=== PATIENT | female | born 1940 | race Caucasian/White ===

== ENCOUNTER → 2021-03-25 15:44 | Emergency (ER) | payer MEDICARE, SELFPAY ==
--- NOTE | 2021-03-25 15:59 | PC.NURSE ---
Family requested RN to assist with getting patient out of car. Once patient was half out of car, patient states that she does not want to go into the ED at this time, patient now refusing to help family and RN get out of car to be seen.
== END | disposition left against medical advice (07) ==
PROVIDERS: PCP Family Medicine
DX: R53.1 Weakness (principal)
CPT/HCPCS: 99199

== ENCOUNTER 2021-03-27 17:14 | Inpatient (IN) | payer MEDICARE, MEDICAID, SELFPAY ==
--- NOTE | ~2021-03-27 | XR_ITS ---
EXAMINATION: XR chest 2V DATE: 03/27/2021 19:17 INDICATION: Shortness of breath and chest congestion TECHNIQUE: frontal and lateral views of the chest were obtained. COMPARISON: Chest radiograph dated 01/30/2017 FINDINGS: Mild elevation of the left hemidiaphragm. Opacities at the left lower lung zone which could represent atelectasis and/or pneumonia. Right lung remains clear. No pulmonary edema, pleural effusion or pneu mothorax. The cardiomediastinal silhouette is within normal limits for AP technique. Median sternotom y wires and mediastinal surgical clips are seen, likely from prior coronary artery bypass grafting. T here are also retained epicardial pacemaker leads. Moderate thoracic spondylosis. Right rotator cuff arthropathy. IMPRESSION: 1. Opacities in the left lower lung zone which could represent atelectasis and/or pneumonia. Reviewed, dictated and finalized at location A. IMPRESSION: 1. Opacities in the left lower lung zone which could represent atelectasis and/ or pneumonia.
--- NOTE | ~2021-03-27 | US_ITS ---
EXAMINATION: US venous doppler LE EXAM DATE: 03/28/2021 11:23 INDICATION: Bilateral leg edema. TECHNIQUE: Multiple grayscale, color flow and Doppler images of the lower extremity deep venous syste ms bilaterally were obtained and reviewed. Comparison is made to prior examination from 01/31/2017. FINDINGS: RIGHT SIDE Common femoral: -------- Normal. Profunda femoral: ------- Normal. Femoral: Normal. Popliteal: Normal. Posterior tibial: ---------Not visualized. Peroneal: Not visualized. Gastrocnemius: Normal. Soleus: Not visualized. Greater saphenous: ----- Normal. Lesser saphenous: ------ Not visualized. LEFT SIDE: Patient declined further imaging, left leg not evaluated. IMPRESSION: Incomplete exam, patient declined imaging beyond right thigh. Reviewed, dictated and finalized at location A.
[2021-03-27 17:13] VITALS: BP 115/70; PULSE 59; RESP 19; TEMP 36.4; O2SAT 95
--- NOTE | 2021-03-27 18:54 | ED.URI ---
HPI - URI/Sore Throat General Chief Complaint: Upper Respiratory Infection Stated Complaint: COUGH/CONGESTION Time Seen by Provider: 03/27/21 18:50 History of Present Illness HPI Narrative: 80 yo female presents from home for suspected pneumonia. Her daughter reports that for at least the past 4-5 dyas she has had a wet cough. She gets short of breath with minimal exertional. She has also had generalized weakness and is not able to provide much assistance with normal activities. No known fever. Her daughter does reports mild ankle swelling. History limited due to extremely poor historian. Daughter provides the majority of the history. Related Data Home Medications Medication Instructions Recorded Confirmed alprazolam 0.25 mg PO 03/27/21 aspirin [Adult Low Dose Aspirin] 81 mg PO DAILY 03/27/21 03/27/21 losartan 25 mg PO 03/27/21 metoprolol succinate 25 mg PO 03/27/21 paroxetine HCl 40 mg PO 03/27/21 simvastatin 20 mg PO 03/27/21 warfarin 1 mg PO 03/27/21 warfarin 2 mg PO 03/27/21 Allergies Allergy/AdvReac Type Severity Reaction Status Date / Time No Known Allergies Allergy Unverified 03/27/21 17:20 Review of Systems Review of Systems: ROS unobtainable: Yes unobtainable due to mental status PMFSH Past Medical History Medical History (Updated 03/27/21 @ 20:22 by Milton Alvarado MD) HTN (hypertension) Surgical History Surgical History (Updated 03/27/21 @ 19:19 by Milton Alvarado MD) Hx of CABG Social History Social History Gender identity (if verbalized by the patient): Female Exam Const: General: no acute distress and alert Nutritional Appearance: well nourished HENMT: Head: normal to inspection Eyes: Pupils: Equal, round and reactive pupils present Neck: Neck: normal visual inspection Chest: Chest palpation & inspection: normal inspection of the chest Resp: Auscultation: crackles bilateral at the base Cardio: Rate: bradycardic Rhythm: regular rhythm GI: Inspection: non-distended GI Palp: Yes Soft to palpation and No Tenderness to palpation present (GI) Skin: General skin exam: normal color Rashes: no rashes Wounds: no wounds Neuro: General: moves all extremities, no focal motor deficits and CN's II-XI intact bilaterally Extrem: General: edema (trace bilateral ankle edema) Course Vital Signs Vital signs: Vital Signs Temperature 36.4 C 03/27/21 17:13 Pulse Rate 59 L 03/27/21 17:13 Respiratory Rate 19 03/27/21 17:13 Blood Pressure 115/70 03/27/21 17:13 Pulse Oximetry 95 03/27/21 17:13 Temperature 36.4 C 03/27/21 17:13 Pulse Rate 59 L 03/27/21 17:13 Respiratory Rate 19 03/27/21 17:13 Blood Pressure 115/70 03/27/21 17:13 Pulse Oximetry 95 03/27/21 17:13 MDM - URI/Sore Throat MDM Narrative Medical decision making narrative: Work-up largely unremarkable. Labs at/near baseline. Possible small infiltrate on chest x-ray. Refusing to provide urine for UA. I will admit for observation given progressive weakness without specific cause identified. Differential Diagnosis Differential diagnosis: Likely upper respiratory infection, viral infection and other (COVID-19, Pneumonia, CHF, UTI) Medical Records Attestation: I reviewed the patient's medical records. Lab Data Attestation: I reviewed the patient's lab results. Result diagrams: 03/27/21 19:31 03/27/21 19:31 Labs: Lab Results 03/27/21 03/27/21 03/27/21 Range/Units 19:31 19:31 19:31 WBC 8.3 (4.5-10.0) K/mm3 RBC 4.33 (4.2-5.4) M/mm3 Hgb 13.7 (12.0-15.0) g/dL Hct 42.1 (37.0-47.0) % MCV 97.2 (80-100) fl MCH 31.6 (26-34) pg MCHC 32.5 (32-36) g/dl RDW 13.3 (11.5-14.5) % Plt Count 293 (150-375) k/mm3 MPV 10.3 (7.4-10.4) fl Immature Gran % (Auto) 0.2 (0-0.5) % Neut % (Auto) 39.7 L (45.5-73.1) % Lymph % (Auto) 46.3 H (18.3-44.2) % [place] % (Auto) 9.0 H (2.6-8.5) % Eos % (Aut
--- NOTE | 2021-03-27 19:00 | ECG_ITS ---
Measurements Intervals [place] Rate: 51 P: 51 [place]: 187 QRS: -28 QRSD: 108 T: 112 QT: 450 QTc: 415 Interpretive Statements SINUS BRADYCARDIA VOLTAGE CRITERIA FOR LVH BORDERLINE R WAVE PROGRESSION, ANTERIOR LEADS CANNOT RULE OUT SEPTAL INFARCT, AGE INDETERMINATE BORDERLINE ST-T WAVE ABNORMALITY- ANTEROLAT/HIGH LAT LEADS ABNORMAL ECG Electronically Signed On 03-27-2021 20:15:10 CDT by Tim Vidal D.O.
--- NOTE | 2021-03-27 19:16 | PC.NURSE ---
Assumed care of Pt. Report from Tiff MCGOVERN.
--- NOTE | 2021-03-27 19:17 | PC.NURSE ---
Pt at CT.
[2021-03-27 19:36] LABS: Basophils Absolute Auto 0.1 K/mm3 (0.0-0.1); Eosinophils Absolute Auto 0.3 K/mm3 (0-0.3); Eosinophils Percent Auto 3.8 % (0-4.4); Hematocrit 42.1 % (37.0-47.0); Hemoglobin 13.7 g/dL (12.0-15.0); Immature Granulocyte Absolute 0.02 K/mm3 (0.00-0.031); Immature Granulocyte Percent A 0.2 % (0-0.5); Lymphocytes Absolute Auto 3.86 K/mm3 (0.9-3.2); Lymphocytes Percent Auto 46.3 % (18.3-44.2); Mean Corpuscular HGB Conc 32.5 g/dl (32-36); Mean Corpuscular Hemoglobin 31.6 pg (26-34); Mean Corpuscular Volume 97.2 fl (80-100); Mean Platelet Volume 10.3 fl (7.4-10.4); Monocytes Absolute Auto 0.8 K/mm3 (0.1-0.6); Neutrophils Absolute Auto 3.3 K/mm3 (1.3-6.7); Neutrophils Percent Auto 39.7 % (45.5-73.1); Platelet Count Result 293 k/mm3 (150-375); Red Blood Count 4.33 M/mm3 (4.2-5.4); Red Cell Distribution Width 13.3 % (11.5-14.5); White Blood Count 8.3 K/mm3 (4.5-10.0)
[2021-03-27 19:48] LABS: Alanine Aminotransferase 10 U/L (4-35); Albumin Level 3.7 g/dL (3.5-5.1); Alkaline Phosphatase 75 U/L (38-126); Anion Gap 3 mmol/L (8-16); Aspartate Amino Transferase 23 U/L (14-36); Bilirubin,Total 0.3 mg/dL (0.2-1.3); Blood Urea Nitrogen 18 mg/dL (7-17); Calcium 9.5 mg/dL (8.4-10.2); Carbon Dioxide 31 mmol/L (22-30); Chloride 106 mmol/L (98-107); Estimated CRCL calculation 22 ml/min; Estimated Glomerular Filt Rate 33; Glucose 125 mg/dL (65-105); INR 2.2; Prothrombin Time 24.6 Seconds (11.1-14.7); Sodium 140 mmol/L (137-145)
[2021-03-27 19:49] LABS: Partial Thromboplastin Time 38.2 SECONDS (22.3-36.8)
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
[2021-03-27 19:58] LABS: NT Pro B Type Natriuretic Pept 826 pg/mL (5-100); Troponin I < 0.012 ng/mL (0.000-0.034)
[2021-03-27 20:06] VITALS: BP 98/71; PULSE 51; RESP 12; TEMP 36.4; O2SAT 90
--- NOTE | 2021-03-27 20:21 | PC.NURSE ---
ERP ok with not obtaining urine at this time due to pt refusal.
[2021-03-27] MEDS: SODIUM CHLORIDE 0.9% IV 500 ML 999 ML IV CONT (20:29)
[2021-03-27 22:03] VITALS: BP 104/43; PULSE 64; RESP 18; TEMP 36.7; O2SAT 92
[2021-03-28] VITALS (10 sets, daily range): BP systolic 118–145; BP diastolic 50–61; PULSE 52–91; RESP 16–20; TEMP 36–36.3; O2SAT 93–96
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
--- NOTE | 2021-03-28 06:29 | PC.NURSE ---
Patient arrived to floor at 2205. Pt is severely [place] and displayed mild, combative behavior towards FILM INSPECTOR. Difficult to ascertain needed information from patient. Daughter was told that she could escort her mom to floor from ER to help answer questions but she did not accompany. LVMM to daughter (Arely) and left call back info to help nursing staff complete admission assessment.//cr 0600: No return call from daughter. Will endorse to day shift.//cr
[2021-03-28 06:30] LABS: Basophils Absolute Auto 0.1 K/mm3 (0.0-0.1); Basophils Percent Auto 1.1 % (0.2-1.2); Eosinophils Absolute Auto 0.3 K/mm3 (0-0.3); Eosinophils Percent Auto 4.6 % (0-4.4); Hemoglobin 12.7 g/dL (12.0-15.0); Immature Granulocyte Absolute 0.02 K/mm3 (0.00-0.031); Immature Granulocyte Percent A 0.3 % (0-0.5); Lymphocytes Absolute Auto 3.16 K/mm3 (0.9-3.2); Lymphocytes Percent Auto 44.4 % (18.3-44.2); Mean Corpuscular HGB Conc 32.6 g/dl (32-36); Mean Corpuscular Hemoglobin 31.5 pg (26-34); Mean Corpuscular Volume 96.8 fl (80-100); Mean Platelet Volume 10.4 fl (7.4-10.4); Monocytes Absolute Auto 0.5 K/mm3 (0.1-0.6); Monocytes Percent Auto 6.9 % (2.6-8.5); Neutrophils Percent Auto 42.7 % (45.5-73.1); Platelet Count Result 264 k/mm3 (150-375); Red Blood Count 4.03 M/mm3 (4.2-5.4); Red Cell Distribution Width 13.1 % (11.5-14.5); White Blood Count 7.1 K/mm3 (4.5-10.0)
[2021-03-28 06:45] LABS: Alanine Aminotransferase 10 U/L (4-35); Albumin Level 3.3 g/dL (3.5-5.1); Alkaline Phosphatase 63 U/L (38-126); Anion Gap 4 mmol/L (8-16); Aspartate Amino Transferase 22 U/L (14-36); Bilirubin,Total 0.4 mg/dL (0.2-1.3); Blood Urea Nitrogen 15 mg/dL (7-17); Calcium 8.6 mg/dL (8.4-10.2); Carbon Dioxide 29 mmol/L (22-30); Chloride 106 mmol/L (98-107); Estimated CRCL calculation 23 ml/min; Estimated Glomerular Filt Rate 36; Glucose 134 mg/dL (65-105); Magnesium 1.6 mg/dL (1.6-2.3); Potassium 3.7 mmol/L (3.4-5.0); Sodium 139 mmol/L (137-145)
[2021-03-28 06:58] LABS: INR 2.1; Prothrombin Time 24.4 Seconds (11.1-14.7)
[2021-03-28] MEDS: methylPREDNISolone SOD SUCC 125 MG VIAL 60 MG IV PUSH ×2 (07:52→13:21)
[2021-03-28] MEDS: ALBUTEROL SULFATE NEB 2.5 MG/0.5 ML INH 5 MG INHALATION ×3 (08:03→19:34)
[2021-03-28] MEDS: IPRATROPIUM BR 0.02% INH SOLN 0.5 MG/2.5 ML VIAL INHALATION ×3 (08:03→19:34)
--- NOTE | 2021-03-28 11:08 | PCPTNOTE ---
Attempted PT eval. Pt having US done.
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
--- NOTE | 2021-03-28 11:32 | PCOTNOTE ---
Attempted OT evaluation, When entered room patient appeared agitated and verbalized to TRANSFER STATION OPERATOR, stating You are being a bitch! patient adamantly refused therapy at this time, despite education on benefits of participating with therapy. patient reports I am comfortable where I am at, leave me alone! . RN notified, will follow.
--- NOTE | 2021-03-28 13:29 | PCPTNOTE ---
Attempted PT eval. Pt agitated and combative, refused to participate w/ therapist. Stated Go away and mind your own business. Will try again tomorrow.
--- NOTE | 2021-03-28 13:40 | P.PNIM_ITS ---
Progress Note: A&P Assessment and Plan (1) Pneumonia: Code(s): J18.9 - Pneumonia, unspecified organism Status: Acute Assessment and Plan: She presented with shortness of breath and cough ongoing for 4 days. CXR presentation showed opacities in the left lower lung zone which could represent pneumonia. At this time, she is asymptomatic. No leukocytosis. She is afebrile. She is maintaining adequate oxygenation on room air. * Continue IV azithromycin and Rocephin at this time. * COVID-19 test pending. * Check influenza * Check Legionella and pneumococcal urinary antigens * Supportive care to include bronchodilators, expectorants, antipyretics, incentive spirometry, and PEP therapy * Unable to obtain sputum culture given nonproductive cough (2) Suspected COVID-19 virus infection: Code(s): Z20.822 - Contact with and (suspected) exposure to COVID-19 Status: Acute Assessment and Plan: She has not received COVID-19 vaccination. Unknown if prior contact with COVID- 19 positive individuals. She is on room air and remaining stable. * Continue isolation precautions * Supportive care as described above * At this time no need for COVID-19 specific therapy including dexamethasone or Remdesivir as she is not requiring supplemental O2. (3) Generalized weakness: Code(s): R53.1 - Weakness Status: Acute Assessment and Plan: She has been eating more assistance getting around at home. * Appreciate PT/OT eval * Fall precautions in place * Limit sedating medications * UA has been ordered to rule out UTI * Check TSH, B12, and folate (4) COPD (chronic obstructive pulmonary disease): Code(s): J44.9 - Chronic obstructive pulmonary disease, unspecified Status: Chronic Assessment and Plan: Does not appear to be in acute exacerbation. No wheezing. No sputum production. * Discontinue IV solumedrol which was started on 03/27. * Continue bronchodilators (5) CAD (coronary artery disease): Code(s): I25.10 - Atherosclerotic heart disease of [place] coronary artery without angina pectoris Status: Chronic Assessment and Plan: Asymptomatic. * Continue home medications including aspirin, losartan, metoprolol, and simvastatin (6) Chronic kidney disease: Code(s): N18.9 - Chronic kidney disease, unspecified Status: Chronic Assessment and Plan: Creatinine levels appear to be consistent with her baseline. Creatinine is 1.4 today. * Monitor renal function closely. Renally dose medications and avoid nephrotoxins. 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 INR is therapeutic at 2.1 today. * Resume warfarin * Monitor PT/INR daily, especially with concurrent antibiotic therapy. (8) HTN (hypertension): Code(s): I10 - Essential (primary) hypertension Status: Inactive Assessment and Plan: Blood pressure reviewed and is well controlled in the low-normal range. Last BP 125/59. * Continue losartan and metoprolol * Monitor BP trends. Subjective Date/time seen: 03/28/21 13:40 Interval history: Date of service: 03/28/2021 Marlyn Huerta is an 80-year-old female with history of CAD, CKD, COPD, hypertension, hyperlipidemia, and prior CVA who is seen in follow-up for suspected pneumonia (bacterial versus
--- NOTE | 2021-03-28 13:40 | PM.IMPN ---
Progress Note: A&P Assessment and Plan (1) Pneumonia: Code(s): J18.9 - Pneumonia, unspecified organism Status: Acute Assessment and Plan: She presented with shortness of breath and cough ongoing for 4 days. CXR presentation showed opacities in the left lower lung zone which could represent pneumonia. At this time, she is asymptomatic. No leukocytosis. She is afebrile. She is maintaining adequate oxygenation on room air. Continue IV azithromycin and Rocephin at this time. COVID-19 test pending. Check influenza Check Legionella and pneumococcal urinary antigens Supportive care to include bronchodilators, expectorants, antipyretics, incentive spirometry, and PEP therapy Unable to obtain sputum culture given nonproductive cough (2) Suspected COVID-19 virus infection: Code(s): Z20.822 - Contact with and (suspected) exposure to COVID-19 Status: Acute Assessment and Plan: She has not received COVID-19 vaccination. Unknown if prior contact with COVID-19 positive individuals. She is on room air and remaining stable. Continue isolation precautions Supportive care as described above At this time no need for COVID-19 specific therapy including dexamethasone or Remdesivir as she is not requiring supplemental O2. (3) Generalized weakness: Code(s): R53.1 - Weakness Status: Acute Assessment and Plan: She has been eating more assistance getting around at home. Appreciate PT/OT eval Fall precautions in place Limit sedating medications UA has been ordered to rule out UTI Check TSH, B12, and folate (4) COPD (chronic obstructive pulmonary disease): Code(s): J44.9 - Chronic obstructive pulmonary disease, unspecified Status: Chronic Assessment and Plan: Does not appear to be in acute exacerbation. No wheezing. No sputum production. Discontinue IV solumedrol which was started on 03/27. Continue bronchodilators (5) CAD (coronary artery disease): Code(s): I25.10 - Atherosclerotic heart disease of [place] coronary artery without angina pectoris Status: Chronic Assessment and Plan: Asymptomatic. Continue home medications including aspirin, losartan, metoprolol, and simvastatin (6) Chronic kidney disease: Code(s): N18.9 - Chronic kidney disease, unspecified Status: Chronic Assessment and Plan: Creatinine levels appear to be consistent with her baseline. Creatinine is 1.4 today. Monitor renal function closely. Renally dose medications and avoid nephrotoxins. 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 INR is therapeutic at 2.1 today. Resume warfarin Monitor PT/INR daily, especially with concurrent antibiotic therapy. (8) HTN (hypertension): Code(s): I10 - Essential (primary) hypertension Status: Inactive Assessment and Plan: Blood pressure reviewed and is well controlled in the low-normal range. Last BP 125/59. Continue losartan and metoprolol Monitor BP trends. Subjective Date/time seen: 03/28/21 13:40 Interval history: Date of service: 03/28/2021 Marlyn Huerta is an 80-year-old female with history of CAD, CKD, COPD, hypertension, hyperlipidemia, and prior CVA who is seen in follow-up for suspected pneumonia (bacterial versus viral). She is a poor historian and it is difficult to obtain information as she is extremely hard of hearing. She does appear to be confused. She called me Scout throughout the encounter and was under the impression that her nurse was her daughter. She told me ?no one here knows what they're doing . She denies pain anywhere. She denies shortness of breath. She is not able to answer any of my other questions and has significant difficulty understanding despite me shouting
[2021-03-28 15:03] LABS: Influenza Control Positive
[2021-03-28] MEDS: METOPROLOL SUCCINATE EXT REL 25 MG TABCR PO (15:23)
[2021-03-28] MEDS: ASPIRIN 81 MG ENTERIC TABLET PO (15:23)
[2021-03-28] MEDS: LOSARTAN POTASSIUM 25 MG TABLET PO (15:23)
[2021-03-28] MEDS: SIMVASTATIN 20 MG TABLET PO (15:24)
[2021-03-28] MEDS: lamoTRIgine 25 MG TABLET PO (20:25)
[2021-03-28] MEDS: guaiFENesin 12 HR 600 MG TABCR PO (20:25)
[2021-03-28 20:46] LABS: SARS-CoV-2 RNA PCR Negative
[2021-03-29] VITALS (11 sets, daily range): BP systolic 106–124; BP diastolic 44–89; PULSE 55–108; RESP 16–18; TEMP 36.1–36.7; O2SAT 93–98
--- NOTE | 2021-03-29 | ECHO_ITS ---
Patient Info Name: Marlyn Huerta Age: 80 years : 1940 Gender: Female Ht: 63 in Wt: 147 lbs BSA: 1.74 m2 HR: 64 bpm BP: 106 / 52 mmHg Heart Rhythm: Sinus Rhythm Technical Quality: Good Exam Date: 03/29/2021 10:48 AM Exam Location: [facility] Patient Status: Inpatient Admit Date: 03/28/2021 Staff Ordering Physician: Cassie Davidson NP Back Tender: Orlando Langford RDCS, RT Attending Provider: Jade Brandt PA-C Referring Physician: Lety LUCIO; Exam Type: CA echo doppler color flow Study Info Indications R06.02 - Shortness of breath Complete two-dimensional, color flow and Doppler transthoracic echocardiogram is performed. Summary 1. Complete two-dimensional, color flow and Doppler transthoracic echocardiogram is performed. 2. Technically difficult study with limited views. Regional wall motion assessment limited due to poor endomyocardial border definition. 3. Left ventricular systolic function is normal, estimated at 55-60%. 4. There is mildly increased left ventricular wall thickness. 5. There is mild aortic valve stenosis with a peak velocity of 165 cm/s, mean gradient of 5 mmHg, and aortic valve area of 1.5 cm2. 6. There is trace mitral valve regurgitation. 7. There is mild tricuspid valve regurgitation. 8. Mild pulmonary hypertension, estimated pulmonary arterial systolic pressure is 39 mmHg. Left Ventricle Left ventricular chamber dimension is normal. Left ventricular systolic function is normal, estimated at 55-60%. There is mildly increased left ventricular wall thickness. The left ventricular diastolic function is abnormal. Technically difficult study with limited views. Regional wall motion assessment limited due to poor endomyocardial border definition. Right Ventricle Right ventricular chamber dimension is normal. Right ventricular systolic function is normal. Left Atria Left atrial chamber dimension is not well visualized. Right Atria Right atrial chamber dimension is not well visualized. Aortic Valve The aortic valve is not well visualized. There is mild aortic valve stenosis with a peak velocity of 165 cm/s, mean gradient of 5 mmHg, and aortic valve area of 1.5 cm2. There is trace aortic valve regurgitation. There is mild aortic valve calcification. Pulmonic Valve The pulmonic valve is not well visualized. There is mild pulmonic regurgitation. Mitral Valve The mitral valve has not well visualized. There is trace mitral valve regurgitation. The mitral valve annulus is mildly calcified. Tricuspid Valve The tricuspid valve leaflets are not well visualized. There is mild tricuspid valve regurgitation. Mild pulmonary hypertension, estimated pulmonary arterial systolic pressure is 39 mmHg. Pericardium/Pleural The pericardium appears not well visualized. Aorta The aortic root size at the sinus of Valsalva is normal. There is mild aortic atherosclerosis. Left Ventricular Outflow Tract Name Value Normal LVOT 2D LVOT Diameter 2.1 cm LVOT Doppler LVOT Peak Velocity 71 cm/s LVOT Peak Gradient 2 mmHg
[2021-03-29] MEDS: ALBUTEROL SULFATE NEB 2.5 MG/0.5 ML INH 5 MG INHALATION ×4 (01:43→19:58)
[2021-03-29] MEDS: IPRATROPIUM BR 0.02% INH SOLN 0.5 MG/2.5 ML VIAL INHALATION ×4 (01:43→19:58)
[2021-03-29] MEDS: HALOPERIDOL LACTATE 5 MG/ML VIAL IM (02:45)
[2021-03-29 06:36] LABS: Hematocrit 40.2 % (37.0-47.0); Hemoglobin 13.1 g/dL (12.0-15.0); Mean Corpuscular HGB Conc 32.6 g/dl (32-36); Mean Corpuscular Hemoglobin 31.4 pg (26-34); Mean Corpuscular Volume 96.4 fl (80-100); Platelet Count Result 280 k/mm3 (150-375); Red Blood Count 4.17 M/mm3 (4.2-5.4); White Blood Count 10.3 K/mm3 (4.5-10.0)
[2021-03-29 06:47] LABS: Anion Gap 7 mmol/L (8-16); Blood Urea Nitrogen 19 mg/dL (7-17); Calcium 9.4 mg/dL (8.4-10.2); Carbon Dioxide 27 mmol/L (22-30); Chloride 108 mmol/L (98-107); Estimated CRCL calculation 27 ml/min; Estimated Glomerular Filt Rate 43; Glucose 148 mg/dL (65-105); Potassium 4.1 mmol/L (3.4-5.0); Sodium 142 mmol/L (137-145)
[2021-03-29 07:03] LABS: INR 1.7; Prothrombin Time 20.3 Seconds (11.1-14.7)
[2021-03-29 07:48] LABS: Folic Acid 5.2 ng/mL (2.76->20)
[2021-03-29] MEDS: guaiFENesin 12 HR 600 MG TABCR PO ×2 (10:18→20:35)
[2021-03-29] MEDS: lamoTRIgine 25 MG TABLET PO ×2 (10:18→20:35)
[2021-03-29] MEDS: SIMVASTATIN 20 MG TABLET PO (10:18)
[2021-03-29] MEDS: LOSARTAN POTASSIUM 25 MG TABLET PO (10:18)
[2021-03-29] MEDS: ASPIRIN 81 MG ENTERIC TABLET PO (10:18)
[2021-03-29] MEDS: DOCUSATE SODIUM 100 MG CAPSULE PO (10:18)
[2021-03-29] MEDS: METOPROLOL SUCCINATE EXT REL 25 MG TABCR PO (10:18)
--- NOTE | 2021-03-29 11:42 | PM.IMPN ---
Progress Note: A&P Assessment and Plan (1) Pneumonia: Code(s): J18.9 - Pneumonia, unspecified organism Status: Acute Assessment and Plan: She presented with shortness of breath and cough ongoing for 4 days. CXR at presentation showed opacities in the left lower lung zone which could represent pneumonia. Respiratory symptoms have improved but she continues to endorse productive cough. She is afebrile. She is maintaining adequate oxygenation on room air. COVID and influenza negative. Continue IV azithromycin and Rocephin Legionella and pneumococcal urinary antigens ordered but uncollected Supportive care to include bronchodilators, expectorants, antipyretics, incentive spirometry, and PEP therapy Will attempt collection of sputum culture (2) Generalized weakness: Code(s): R53.1 - Weakness Status: Acute Assessment and Plan: She has been needing more assistance getting around at home. She feels weak. This is likely due to physical deconditioning and probably worsened by acute illness. B12, Folate, and TSH wnl. Appreciate PT/OT eval Fall precautions in place Care coordination following. Plan for SNF upon discharge. Hopeful discharge tomorrow Limit sedating medications UA has been ordered to rule out UTI but specimen uncollected. (3) COPD (chronic obstructive pulmonary disease): Code(s): J44.9 - Chronic obstructive pulmonary disease, unspecified Status: Chronic Assessment and Plan: Not in acute exacerbation. No wheezing. She is maintaining adequate oxygenation on room air. Continue bronchodilators IV Solu-Medrol initiated at presentation was discontinued on 03/28/2021 as she had no clinical signs to suggest COPD exacerbation. Mild leukocytosis secondary to IV steroids noted today. (4) CAD (coronary artery disease): Code(s): I25.10 - Atherosclerotic heart disease of [place] coronary artery without angina pectoris Status: Chronic Assessment and Plan: Asymptomatic. Continue home medications including aspirin, losartan, metoprolol, and simvastatin (5) Chronic kidney disease: Code(s): N18.9 - Chronic kidney disease, unspecified Status: Chronic Assessment and Plan: Creatinine levels appear to be consistent with her baseline. Creatinine is 1.2 today. Monitor renal function closely. Renally dose medications and avoid nephrotoxins. 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 INR is subtherapeutic today at 1.7 which is likely due to holding of warfarin at admission. Continue warfarin. Will hold on bridging therapy at this time as she is low risk given VTE >12 months ago. Monitor PT/INR daily, especially with concurrent antibiotic therapy. (7) HTN (hypertension): Code(s): I10 - Essential (primary) hypertension Status: Inactive Assessment and Plan: Blood pressure reviewed and is well controlled in the low-normal range. Last BP 106/52 Continue losartan and metoprolol Monitor BP trends. (8) COVID-19 ruled out by laboratory testing: Code(s): Z20.822 - Contact with and (suspected) exposure to COVID-19 Status: Acute Assessment and Plan: Negative COVID test on 03/28/2021. Isolation precautions have been discontinued. She has not received COVID-19 vaccination. Subjective Date/time seen: 03/29/21 11:42 Interval history: Date of service: 03/28/2021 Marlyn Huerta is an 80-year-old female with history of CAD, CKD, COPD, hypertension, hyperlipidemia, and prior CVA who is seen in follow-up for generalized weakness and pneumonia. She is able to hear me a lot better today and can answer all of my questions appropriately. She reports frequent cough productive of white sputum, occasionally yellow. She denie
[2021-03-29] MEDS: WARFARIN (*PBKC) 1 MG TABLET PO (16:54)
--- NOTE | 2021-03-29 20:29 | PC.NURSE ---
Told in AM report that the patient has no IV access and that this was okayed per DrLisandra or hospitalist. Non amending the evening antibiotics due to this because they are for IV. Absent mindedly opened ceftriaxone and had to toss it. -AEW RN
--- NOTE | 2021-03-29 22:16 | PC.NURSE ---
spoke to Cassie Davidson regarding patients IV antibiotics and she switched her to PO
[2021-03-30] VITALS (12 sets, daily range): BP systolic 118–135; BP diastolic 56–75; PULSE 70–89; RESP 16–20; TEMP 36.5; O2SAT 94–98
[2021-03-30] MEDS: ALBUTEROL SULFATE NEB 2.5 MG/0.5 ML INH 5 MG INHALATION ×4 (01:43→20:30)
[2021-03-30] MEDS: IPRATROPIUM BR 0.02% INH SOLN 0.5 MG/2.5 ML VIAL INHALATION ×4 (01:43→20:30)
[2021-03-30 06:05] LABS: Hematocrit 38.3 % (37.0-47.0); Hemoglobin 12.4 g/dL (12.0-15.0); Mean Corpuscular HGB Conc 32.4 g/dl (32-36); Mean Corpuscular Hemoglobin 30.9 pg (26-34); Mean Corpuscular Volume 95.5 fl (80-100); Mean Platelet Volume 10.8 fl (7.4-10.4); Platelet Count Result 259 k/mm3 (150-375); Red Blood Count 4.01 M/mm3 (4.2-5.4); Red Cell Distribution Width 13.2 % (11.5-14.5); White Blood Count 10.7 K/mm3 (4.5-10.0)
[2021-03-30 06:32] LABS: Anion Gap 4 mmol/L (8-16); Blood Urea Nitrogen 22 mg/dL (7-17); Carbon Dioxide 30 mmol/L (22-30); Chloride 104 mmol/L (98-107); Estimated CRCL calculation 29 ml/min; Estimated Glomerular Filt Rate 48; Glucose 113 mg/dL (65-105); Potassium 3.8 mmol/L (3.4-5.0); Sodium 138 mmol/L (137-145)
[2021-03-30] MEDS: DOCUSATE SODIUM 100 MG CAPSULE PO (09:43)
[2021-03-30] MEDS: AZITHROMYCIN 250 MG TABLET 500 MG PO (09:43)
[2021-03-30] MEDS: ASPIRIN 81 MG ENTERIC TABLET PO (09:43)
[2021-03-30] MEDS: LOSARTAN POTASSIUM 25 MG TABLET PO (09:44)
[2021-03-30] MEDS: SIMVASTATIN 20 MG TABLET PO (09:44)
[2021-03-30] MEDS: METOPROLOL SUCCINATE EXT REL 25 MG TABCR PO (09:44)
[2021-03-30] MEDS: lamoTRIgine 25 MG TABLET PO (09:44)
[2021-03-30] MEDS: guaiFENesin 12 HR 600 MG TABCR PO (09:44)
[2021-03-30 12:19] LABS: INR 1.2; Prothrombin Time 16.1 Seconds (11.1-14.7)
--- NOTE | 2021-03-30 15:13 | PM.DS ---
DS: Admitting Diagnosis Admitting Diagnosis Admitting Diagnosis: Community acquired pneumonia DS: Discharge Diagnosis Discharge Diagnosis (1) Community acquired bacterial pneumonia: Code(s): J15.9 - Unspecified bacterial pneumonia Status: Acute Assessment and Plan: She presented with shortness of breath and cough ongoing for 4 days. CXR at presentation showed opacities in the left lower lung zone which could represent pneumonia. COVID-19 and influenza negative. She remained on room air and did not require supplemental oxygen. She was treated with IV Azithromycin and Rocephin. Supportive care provided including bronchodilators, expectorants, antipyretics, incentive spirometry, and PEP therapy. She remained afebrile. Respiratory symptoms improved significantly. Unable to collect sputum culture. Legionella and pneumococcal antigens ordered but uncollected as patient did not give a urine specimen. She will continue PO azithromycin to complete 5 days and PO cefdinir to complete 7 days. Continue guaifenesin and albuterol inhaler prn (2) Generalized weakness: Code(s): R53.1 - Weakness Status: Acute Assessment and Plan: She had been requiring more assistance getting around at home. She felt very weak. This is likely due to physical deconditioning and probably worsened by acute illness. B12, Folate, and TSH wnl. UA on collected as she was unable to provide a specimen, however, clinically doubt UTI. She was evaluated by PT/OT and will continue therapy at SNF, which was arranged via care coordination. Fall precautions discussed. (3) COPD (chronic obstructive pulmonary disease): Code(s): J44.9 - Chronic obstructive pulmonary disease, unspecified Status: Chronic Assessment and Plan: Not in acute exacerbation. No wheezing. She maintained adequate oxygenation on room air. IV Solu-Medrol was initiated at presentation and was discontinued on 03/28/2021 as she had no clinical signs to suggest COPD exacerbation. Mild leukocytosis secondary to IV steroids noted subsequently. Continue albuterol inhaler as needed. (4) CAD (coronary artery disease): Code(s): I25.10 - Atherosclerotic heart disease of [place] coronary artery without angina pectoris Status: Chronic Assessment and Plan: Asymptomatic. Continue home medications including aspirin, losartan, metoprolol, and simvastatin (5) Chronic kidney disease: Code(s): N18.9 - Chronic kidney disease, unspecified Status: Chronic Assessment and Plan: Creatinine levels were consistent with her baseline. 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 INR was therapeutic at presentation but subsequently became subtherapeutic which may have been due to holding of warfarin at admission. Bridging therapy not felt to be needed as she is low risk given VTE >12 months ago. INR 1.2 at time of discharge and warfarin was increased to 2 mg daily (previously alternating between 1 and 2 mg). Repeat INR on 04/03/2021. (7) HTN (hypertension): Code(s): I10 - Essential (primary) hypertension Status: Inactive Assessment and Plan: Blood pressure reviewed and was well controlled in the low-normal range. Continue losartan and metoprolol. (8) COVID-19 ruled out by laboratory testing: Code(s): Z20.822 - Contact with and (suspected) exposure to COVID-19 Status: Acute Assessment and Plan: Negative COVID test on 03/28/2021. Isolation precautions were discontinued. She has not received COVID-19 vaccination. DS: Summary Hospital Course Reason for hospitalization: Pneumonia Hospital Course: Date of admission: 03/27/2021 Date of discharge: 03/30/2021 Marlyn Huerta is an 80-year-old female with history of CAD,
[2021-03-30 17:06] LABS: SARS-CoV-2 RNA PCR Negative
[2021-03-30] MEDS: WARFARIN (*PBKC) 1 MG TABLET PO (17:10)
--- NOTE | 2021-03-30 20:58 | PC.NURSE ---
left message with daughter to let her know that her mom is in route to care center
== END 2021-03-30 20:52 | DRG 194 ==
LOC: ANHED 20:22 → ANH3MEDSUR 21:07
PROVIDERS: Nurse Practitioner; Physician Assistant; Admitting Provider Family Medicine; Emergency Provider Emergency Medicine; PCP Family Medicine; Visit Provider Family Medicine
DX: J15.9 Unspecified bacterial pneumonia (principal); J44.0 Chronic obstructive pulmonary disease with (acute) lower respiratory infection; Z20.822 Contact with and (suspected) exposure to COVID-19; R53.1 Weakness; I25.10 Atherosclerotic heart disease of native coronary artery without angina pectoris; I12.9 Hypertensive chronic kidney disease with stage 1 through stage 4 chronic kidney disease, or unspecified chronic kidney disease; N18.9 Chronic kidney disease, unspecified; R91.8 Other nonspecific abnormal finding of lung field; E78.5 Hyperlipidemia, unspecified; Z79.01 Long term (current) use of anticoagulants; Z79.82 Long term (current) use of aspirin; Z86.711 Personal history of pulmonary embolism; Z86.718 Personal history of other venous thrombosis and embolism; Z86.73 Personal history of transient ischemic attack (TIA), and cerebral infarction without residual deficits; Z95.1 Presence of aortocoronary bypass graft
CPT/HCPCS: 36415; 71046; 80048; 80053; 82607; 82746; 83735; 83880; 84443; 84484; 85025; 85027; 85610; 85730; 87804; 93005; 93306; 93970; 94640; 94667; 94668; 96365; 96366; 96368; 96375; 96376; 97161; 97166; 99285; A9270; C9803; G0378; J0456; J0696; J1630; J2930; J7040; U0003; U0005